=== PATIENT | male | born 1975 ===

== ENCOUNTER 2022-03-24 06:33 | Day surgery (SDC) | payer OTHER ==
[2022-03-24] MEDS ORDERED: MIRALAX17 GM PO (08:32)
[2022-03-24] MEDS ORDERED: ULTRAM50 MG PO (08:32)
[2022-03-24] MEDS ORDERED: NEURONTIN300 MG PO (08:32)
[2022-03-24] MEDS ORDERED: KETO10TA2 PO (08:32)
[2022-03-24] MEDS ORDERED: TYLENOL ARTHRI650 MG PO (08:32)
== END 2022-03-24 13:00 | disposition home or self-care (01) ==
LOC: CIR.AMB 06:33
PROVIDERS: ATTEND Surgery
DX: K42.0 Umbilical hernia with obstruction, without gangrene (principal); Z88.0 Allergy status to penicillin; E66.9 Obesity, unspecified; Z20.822 Contact with and (suspected) exposure to COVID-19
CPT/HCPCS: 49653; C1781